=== PATIENT | male | born 1960 | race American Indian/Alaskan Native ===

== ENCOUNTER 2020-12-02 09:18 | Outpatient (CLI) | payer OTHER ==
--- NOTE | 2020-12-02 11:44 | Vascular Lab Report ---
Duplex Doppler renal ultrasound with spectral analysis INDICATION: ABNORMAL KIDNEY FUNCTION STUDIES. COMPARISON: No relevant prior imaging study available. FINDINGS: RIGHT KIDNEY: Size: 11.0 cm. No acute findings. LEFT KIDNEY: Size: 10.4 cm. No acute findings. Peak systolic velocities (centimeters per second): Abdominal aorta: 113 Proximal right renal artery: 196 Mid right renal artery: 155 Distal right renal artery: 183 Right Renal-Aorta ratio (RAR): Less than 2. Segmental right renal artery resistive index: 0.76 Proximal left renal artery: 156 Mid left renal artery: 142 Distal left renal artery: 95 Left renal-Aortic ratio (RAR). Less than 2. Segmental left renal artery resistive index: 0.78 IMPRESSION 1. No acute sonographic abnormality of the kidneys. 2. No sonographic evidence of renal artery stenosis. There is borderline elevation of peak systolic v elocity in the proximal right renal artery; however, the renal artery aorta ratio is well within norm al limits. 3. There is elevation of the single resistive index given in both kidneys. 4. The spinning mule operator measured the peak systolic velocity in the proximal SMA 331 cm/s. This could be ar tifact, this could be seen in the setting of significant stenosis. Given the above findings, CT angiogram would be useful to better characterize the renal and mesenteri c arterial trees. Renal artery Stenosis Criteria: Normal: RAR: < 3.5 PSV: <200 cm/s <60% stenosis: RAR: < 3.5 PSV: >200 cm/s >=60% stenosis: RAR: >=3.5 PSV: >=200 cm/s Resistive Indices Criteria: Normal value: ~0.60 Upper limits of normal: ~0.70 Signer Name: Mateus Torrez MD Signed: 12/02/2020 11:39 AM Workstation Name: [id number]
== END 2020-12-02 09:19 | disposition home or self-care (01) ==
LOC: VAS 09:18
PROVIDERS: ATTEND Internal Medicine Nephrology
DX: R94.4 Abnormal results of kidney function studies (principal)
CPT/HCPCS: 93975